=== PATIENT | male | born 1985 | race Asian ===

== ENCOUNTER 2020-10-06 08:33 | Emergency (ER) | payer SELFPAY ==
[~2020-10-06] VITALS: Ht 167.6 cm; Wt 68.2 kg
[2020-10-06] MEDS ORDERED: LIDOCAINE 5% TRANSDERMAL PATCH TD ONE (10:00)
[2020-10-06] MEDS ORDERED: ACETAMINOPHEN 500 MG TABLET PO ONE (10:00)
[2020-10-06] MEDS ORDERED: KETOROLAC TROMETHAMINE 30 MG/ML VIAL IM ONE (10:00)
[2020-10-06 11:42] VITALS: BP 149/72
== END 2020-10-06 11:43 | disposition home or self-care (01) ==
LOC: EMS 08:33
DX: S92.042A Displaced other fracture of tuberosity of left calcaneus, initial encounter for closed fracture (principal); F17.200 Nicotine dependence, unspecified, uncomplicated; V49.9XXA Car occupant (driver) (passenger) injured in unspecified traffic accident, initial encounter; Y93.89 Activity, other specified; Y92.89 Other specified places as the place of occurrence of the external cause; Y99.8 Other external cause status
CPT/HCPCS: 29515; 73610; 96372; 99283; J1885

== ENCOUNTER 2022-02-08 09:45 | Emergency (ER) | payer SELFPAY ==
[~2022-02-08] VITALS: Ht 167.6 cm; Wt 65.9 kg
[2022-02-08] MEDS ORDERED: HYDROmorphone 2 MG/ML VIAL IM ONE (10:15)
[2022-02-08 11:20] VITALS: BP 136/88
== END 2022-02-08 11:35 | disposition home or self-care (01) ==
LOC: EMS 09:45
DX: K64.8 Other hemorrhoids (principal)
CPT/HCPCS: 96372; 99283; J1170